=== PATIENT | female | born 1990 | race Caucasian/White ===

== ENCOUNTER 2023-09-14 14:24 | Inpatient (IN) | payer MEDICAID, OTHER ==
[~2023-09-14] VITALS: Ht 162.6 cm; Wt 56.7 kg
[2023-09-14] MEDS ORDERED: CARB-92 PO ×3 (14:48→14:50)
[2023-09-14] MEDS ORDERED: ESCI20TA87 PO (14:48)
[2023-09-14] MEDS ORDERED: HALOPERIDOL 5 MG TABLET PO PRN (15:15)
[2023-09-14] MEDS: LORazepam 2 MG TABLET PO PRN ×2 (15:47→21:32)
[2023-09-14 15:53] LABS: BASOPHILS % (AUTO) 0.9 % (0.0-2.0); EOSINOPHILS % (AUTO) 0.5 % (1.0-6.0); HEMATOCRIT 39.5 % (36-46); HEMOGLOBIN 13.6 g/dL (12.0-16.0); LYMPHOCYTES # (AUTO) 2.4 K/uL (1.0-4.8); LYMPHOCYTES % (AUTO) 28.8 % (22.0-44.0); MEAN CORPUSCULAR HEMOGLOBIN 31.6 pg (26.0-34.0); MEAN CORPUSCULAR HGB CONC 34.4 G/dL (31.0-37.0); MEAN CORPUSCULAR VOLUME 92 fL (80-100); MONOCYTES # (AUTO) 0.6 K/uL (0.1-1.0); MONOCYTES % (AUTO) 7.2 % (2.0-9.0); NEUTROPHILS # (AUTO) 5.1 K/uL (1.8-7.7); NEUTROPHILS % (AUTO) 62.6 % (40.0-70.0); PLATELET COUNT (AUTO) 259 K/uL (150-450); RED CELL DISTRIBUTION WIDTH 13.2 % (11.5-14.5); WHITE BLOOD COUNT (AUTO) 8.2 K/uL (4.5-11.0)
[2023-09-14 16:11] LABS: AMPHET/METH SCREEN,URINE NEGATIVE (NEGATIVE); BARBITURATE SCREEN, URINE NEGATIVE (NEGATIVE); BENZODIAZEPINES SCREEN,URINE NEGATIVE (NEGATIVE); CANNABINOID SCREEN,URINE NEGATIVE (NEGATIVE); COCAINE SCREEN,URINE NEGATIVE (NEGATIVE); METHADONE SCREEN, URINE NEGATIVE (NEGATIVE); OPIATE SCREEN,URINE NEGATIVE (NEGATIVE); PHENCYCLIDINE SCREEN,URINE NEGATIVE (NEGATIVE)
[2023-09-14 16:13] LABS: ALCOHOL, URINE DRUG SCREEN NEGATIVE (NEGATIVE)
[2023-09-14 16:13] LABS: ALCOHOL, BLOOD (SERUM) < 3 mg/dL (0-10)
[2023-09-14 16:14] LABS: ALANINE AMINOTRANSFERASE 28 U/L (12-78); ALBUMIN 3.6 g/dL (3.4-5.0); ALKALINE PHOSPHATASE 48 U/L (46-116); ANION GAP 5 mmol/L (8-16); ASPARTATE AMINOTRANSFERASE 16 U/L (15-37); BILIRUBIN,TOTAL 0.3 mg/dL (0.1-1.0); CARBON DIOXIDE 32 mmol/L (22-29); CHLORIDE 100 mmol/L (98-107); CREATININE 0.95 mg/dL (0.60-1.30); GLOMERULAR FILTR. RATE CALC > 60 mL/min (>60); GLUCOSE,RANDOM 81 mg/dL (70-110); SODIUM SERUM 137 mmol/L (136-145); TOTAL PROTEIN, SERUM 7.5 g/dL (6.4-8.2); UREA NITROGEN, BLOOD 8 mg/dL (7-18)
[2023-09-14 16:19] LABS: POTASSIUM 2.9 mmol/L (3.5-5.1)
[2023-09-14] MEDS ORDERED: POTASSIUM CHLORIDE 20 MEQ ER TABLET PO ONE ×2 (16:30→19:30)
[2023-09-14 18:16] LABS: COVID AG,FIA SOURCE NASAL SWAB
[2023-09-14] MEDS: ZOLPIDEM TARTRATE 10 MG TABLET PO PRN (18:21)
[2023-09-14 18:34] LABS: SARS-COV2 (COVID) ANTIGEN,FIA Negative (Negative)
[2023-09-14] MEDS ORDERED: NICOTINE 21 MG/24 HOUR PATCH TD ONE (19:30)
[2023-09-14 21:06] VITALS: BP 140/99; PULSE 63; RESP 18; TEMP 97.5; O2SAT 98
[2023-09-15] VITALS (8 sets, daily range): BP systolic 108–139; BP diastolic 65–92; PULSE 67–86; RESP 16–18; TEMP 97.5–98.7; O2SAT 97–98
[2023-09-15] MEDS ORDERED: INFLUENZA VIRUS VACCINE QVS 2023-24 (6MO+)/PF 60 MCG/0.5 ML SYRINGE IM. ONE (02:45)
[2023-09-15] MEDS ORDERED: LOPERAMIDE HCL 2 MG CAPSULE PO PRN ×2 (08:30)
[2023-09-15] MEDS ORDERED: TUBERCULIN, PURIFIED PROTEIN DERIVATIVE 5 TU/0.1 ML SYRINGE ID ONE (08:30)
[2023-09-15] MEDS ORDERED: CYANOCOBALAMIN 1,000 MCG/ML VIAL IM ONE (08:30)
[2023-09-15] MEDS ORDERED: HydrOXYzine PAMOATE 50 MG CAPSULE PO PRN (08:30)
[2023-09-15] MEDS ORDERED: MAG HYDROX/ALUMINUM HYD/SIMETH ES 30 ML SUSPENSION UDCUP PO PRN (08:30)
[2023-09-15] MEDS ORDERED: ACETAMINOPHEN 325 MG TABLET PO PRN (08:30)
[2023-09-15] MEDS ORDERED: DIAZEPAM 10 MG TABLET PO PRN (08:30)
[2023-09-15] MEDS ORDERED: DIAZEPAM 10 MG TABLET PO ONE (08:30)
[2023-09-15] MEDS ORDERED: PROMETHAZINE HCL 25 MG TABLET PO PRN (08:30)
[2023-09-15] MEDS ORDERED: MAGNESIUM HYDROXIDE SUSPENSION 30 ML UDCUP PO PRN (08:30)
[2023-09-15] MEDS ORDERED: GuaiFENesin/D-METHORPHAN [SUGAR-FREE] 200-20MG/10 ML SYRUP UDCUP PO PRN (08:30)
[2023-09-15 08:57] LABS: HCG,QUANTITATIVE < 1 mIU/mL (0-6); POTASSIUM 3.7 mmol/L (3.5-5.1)
[2023-09-15] MEDS: OMEGA-3/DHA/EPA/FISH OIL 1,000 MG CAPSULE PO SCH (09:30)
[2023-09-15] MEDS: GABAPENTIN 100 MG CAPSULE PO SCH ×4 (09:30→20:05)
[2023-09-15] MEDS: THIAMINE 100 MG TABLET PO SCH ×2 (09:30→16:23)
[2023-09-15] MEDS: FOLIC ACID 1 MG TABLET PO SCH (09:30)
[2023-09-15] MEDS: MULTIVITAMINS WITH MINERALS, THERAPEUTIC TABLET PO SCH (09:30)
[2023-09-15] MEDS: NALTREXONE HCL 50 MG TABLET PO SCH (09:30)
[2023-09-15] MEDS: CarBAMazepine 200 MG TABLET PO SCH ×2 (09:30→20:06)
[2023-09-15] MEDS: NICOTINE 21 MG/24 HOUR PATCH TD SCH (10:26)
[2023-09-15] MEDS: MIRTAZAPINE 15 MG TABLET PO SCH (20:06)
[2023-09-15] MEDS: ZOLPIDEM TARTRATE 10 MG TABLET PO PRN (20:06)
[2023-09-15] MEDS: MELATONIN 5 MG TABLET PO SCH (20:06)
[2023-09-16 01:28] VITALS: BP 110/70; PULSE 72; RESP 18; TEMP 98
[2023-09-16 05:36] VITALS: BP 110/83; PULSE 72; RESP 18; TEMP 97.4
[2023-09-16 08:02] LABS: HEMOGLOBIN A1C 4.5 % (3.8-5.6)
[2023-09-16 08:12] LABS: APPEARANCE,URINE CLEAR (CLEAR); BILIRUBIN,URINE NEGATIVE (NEGATIVE); COLOR,URINE LIGHT YELLOW (YELLOW); GLUCOSE, URINE (UA) NEGATIVE (NEGATIVE); KETONES,URINE NEGATIVE (NEGATIVE); LEUKOCYTE ESTERASE ,URINE NEGATIVE (NEGATIVE); NITRATE,URINE NEGATIVE (NEGATIVE); OCCULT BLOOD,URINE NEGATIVE (NEGATIVE); PH,URINE 6.5 (5.0-8.0); PH,URINE DRUG SCREEN 6.5 (5.0-8.0); PROTEIN,URINE TRACE mg/dL (NEGATIVE); SPECIFIC GRAVITIY, URINE 1.018 (1.003-1.030); UROBILINOGEN,URINE <=1.0 mg/dL (<=1.0)
[2023-09-16 08:25] LABS: CARBAMAZEPINE (TEGRETOL) 4.8 mcg/mL (4.0-12.0); CHOL/HDL RATIO 2.6 (3.9-5.7); FREE T4 (FREE THYROXINE) 0.74 ng/dL (0.76-1.46); THYROID STIMULATING HORMONE 0.43 uIU/mL (0.36-3.74)
[2023-09-16 08:31] VITALS: BP 123/81; PULSE 60; RESP 17; TEMP 97.5; O2SAT 99
[2023-09-16] MEDS: THIAMINE 100 MG TABLET PO SCH ×2 (08:31→17:09)
[2023-09-16] MEDS: DIAZEPAM 10 MG TABLET PO SCH ×4 (08:31→20:40)
[2023-09-16] MEDS: ARIPiprazole 2 MG TABLET PO SCH (08:31)
[2023-09-16 08:32] LABS: ALCOHOL, URINE DRUG SCREEN NEGATIVE (NEGATIVE); AMPHET/METH SCREEN,URINE NEGATIVE (NEGATIVE); BARBITURATE SCREEN, URINE NEGATIVE (NEGATIVE); BENZODIAZEPINES SCREEN,URINE NEGATIVE (NEGATIVE); CANNABINOID SCREEN,URINE NEGATIVE (NEGATIVE); COCAINE SCREEN,URINE NEGATIVE (NEGATIVE); METHADONE SCREEN, URINE NEGATIVE (NEGATIVE); OPIATE SCREEN,URINE NEGATIVE (NEGATIVE); PHENCYCLIDINE SCREEN,URINE NEGATIVE (NEGATIVE)
[2023-09-16] MEDS: FOLIC ACID 1 MG TABLET PO SCH (08:32)
[2023-09-16] MEDS: ESCITALOPRAM OXALATE 10 MG TABLET PO SCH (08:32)
[2023-09-16] MEDS: MULTIVITAMINS WITH MINERALS, THERAPEUTIC TABLET PO SCH (08:32)
[2023-09-16] MEDS: NALTREXONE HCL 50 MG TABLET PO SCH (08:32)
[2023-09-16] MEDS: CarBAMazepine 200 MG TABLET PO SCH ×2 (08:32→20:40)
[2023-09-16] MEDS: GABAPENTIN 100 MG CAPSULE PO SCH ×4 (08:32→20:40)
[2023-09-16] MEDS: OMEGA-3/DHA/EPA/FISH OIL 1,000 MG CAPSULE PO SCH (08:32)
[2023-09-16] MEDS: NICOTINE 21 MG/24 HOUR PATCH TD SCH (08:33)
[2023-09-16 09:45] VITALS: BP 115/78; PULSE 75; RESP 18; TEMP 97.8; O2SAT 97
[2023-09-16 14:06] VITALS: BP 110/74; PULSE 72; RESP 18; TEMP 97.5; O2SAT 98
[2023-09-16] MEDS: NICOTINE POLACRILEX 4 MG LOZENGE PO PRN ×3 (14:19→20:47)
[2023-09-16] MEDS: DIAZEPAM 10 MG TABLET PO PRN (14:21)
[2023-09-16] MEDS ORDERED: VARENICLINE TARTRATE 1 MG TABLET PO ONE (15:30)
[2023-09-16] MEDS: VARENICLINE TARTRATE 1 MG TABLET PO SCH (17:00)
[2023-09-16] MEDS: MELATONIN 5 MG TABLET PO SCH (20:40)
[2023-09-16] MEDS: MIRTAZAPINE 15 MG TABLET PO SCH (20:40)
[2023-09-16 20:52] VITALS: BP 139/89; PULSE 80; RESP 19; TEMP 98.1; O2SAT 99
[2023-09-17 03:30] VITALS: BP 125/84; PULSE 106; RESP 18; TEMP 97.6
[2023-09-17] MEDS: DIAZEPAM 10 MG TABLET PO PRN (03:45)
[2023-09-17] MEDS: NICOTINE POLACRILEX 4 MG LOZENGE PO PRN ×6 (03:47→21:12)
[2023-09-17] MEDS: OMEGA-3/DHA/EPA/FISH OIL 1,000 MG CAPSULE PO SCH (08:57)
[2023-09-17] MEDS: THIAMINE 100 MG TABLET PO SCH ×2 (08:57→16:06)
[2023-09-17] MEDS: ARIPiprazole 2 MG TABLET PO SCH (08:57)
[2023-09-17] MEDS: CarBAMazepine 200 MG TABLET PO SCH ×2 (08:58→20:07)
[2023-09-17] MEDS: DIAZEPAM 10 MG TABLET PO SCH ×4 (08:58→20:07)
[2023-09-17] MEDS: MULTIVITAMINS WITH MINERALS, THERAPEUTIC TABLET PO SCH (08:59)
[2023-09-17] MEDS: GABAPENTIN 100 MG CAPSULE PO SCH ×2 (08:59→12:52)
[2023-09-17] MEDS: NALTREXONE HCL 50 MG TABLET PO SCH (08:59)
[2023-09-17] MEDS: FOLIC ACID 1 MG TABLET PO SCH (08:59)
[2023-09-17] MEDS: ESCITALOPRAM OXALATE 10 MG TABLET PO SCH (09:00)
[2023-09-17] MEDS: VARENICLINE TARTRATE 1 MG TABLET PO SCH ×2 (09:00→16:06)
[2023-09-17 11:15] VITALS: BP 111/68; PULSE 75; RESP 16; TEMP 98.2
[2023-09-17] MEDS: GABAPENTIN 300 MG CAPSULE PO SCH ×2 (16:07→20:08)
[2023-09-17] MEDS: MELATONIN 5 MG TABLET PO SCH (20:18)
[2023-09-17] MEDS ORDERED: MIRTAZAPINE 15 MG TABLET PO SCH (21:00)
[2023-09-17] MEDS ORDERED: ESZOPICLONE 3 MG TABLET PO SCH (21:00)
[2023-09-17 21:45] VITALS: BP 140/81; PULSE 72; RESP 18; TEMP 97; O2SAT 99
[2023-09-18] MEDS: MELATONIN 5 MG TABLET PO SCH (00:08)
[2023-09-18] MEDS: NICOTINE POLACRILEX 4 MG LOZENGE PO PRN ×4 (00:14→09:14)
[2023-09-18 05:54] VITALS: BP 112/74; PULSE 74; RESP 17; TEMP 97.3; O2SAT 97
[2023-09-18] MEDS ORDERED: DIAZEPAM 5 MG TABLET PO PRN (07:00)
[2023-09-18] MEDS: MULTIVITAMINS WITH MINERALS, THERAPEUTIC TABLET PO SCH (08:02)
[2023-09-18] MEDS: NALTREXONE HCL 50 MG TABLET PO SCH (08:02)
[2023-09-18] MEDS: GABAPENTIN 300 MG CAPSULE PO SCH ×2 (08:02→12:18)
[2023-09-18] MEDS: THIAMINE 100 MG TABLET PO SCH (08:02)
[2023-09-18] MEDS: ARIPiprazole 2 MG TABLET PO SCH (08:02)
[2023-09-18] MEDS: OMEGA-3/DHA/EPA/FISH OIL 1,000 MG CAPSULE PO SCH (08:02)
[2023-09-18] MEDS: FOLIC ACID 1 MG TABLET PO SCH (08:02)
[2023-09-18] MEDS: CarBAMazepine 200 MG TABLET PO SCH (08:02)
[2023-09-18] MEDS: DIAZEPAM 5 MG TABLET PO SCH ×2 (08:03→12:19)
[2023-09-18] MEDS: VARENICLINE TARTRATE 1 MG TABLET PO SCH (08:05)
[2023-09-18 08:11] VITALS: BP 117/74; PULSE 77; RESP 17; TEMP 97.5; O2SAT 97
[2023-09-18] MEDS ORDERED: PARoxetine HCL 10 MG TABLET PO SCH (09:00)
[2023-09-18] MEDS ORDERED: OMEG-135 PO (11:51)
[2023-09-18] MEDS ORDERED: MIRT-89 PO (11:51)
[2023-09-18] MEDS ORDERED: PARO10TA71 PO (11:51)
[2023-09-18] MEDS ORDERED: ARIP2TAB27 PO (11:51)
[2023-09-18] MEDS ORDERED: VARE1TAB25 PO (11:51)
[2023-09-18] MEDS ORDERED: MELA5TAB40 PO (11:51)
[2023-09-18] MEDS ORDERED: CARB-92 PO ×2 (11:51)
[2023-09-19] MEDS ORDERED: DIAZEPAM 5 MG TABLET PO PRN (07:00)
== END 2023-09-18 13:00 | disposition home or self-care (01) | DRG 753 ==
LOC: EMS 14:25 → B3A 19:10
PROVIDERS: ADMIT Psychiatry & Neurology Psychiatry; ATTEND Psychiatry & Neurology Psychiatry
DX: F31.30 Bipolar disorder, current episode depressed, mild or moderate severity, unspecified (principal); R45.851 Suicidal ideations; G40.909 Epilepsy, unspecified, not intractable, without status epilepticus; F17.210 Nicotine dependence, cigarettes, uncomplicated; J44.9 Chronic obstructive pulmonary disease, unspecified; Z20.822 Contact with and (suspected) exposure to COVID-19; F10.939 Alcohol use, unspecified with withdrawal, unspecified; Z91.199 Patient's noncompliance with other medical treatment and regimen due to unspecified reason; Z88.8 Allergy status to other drugs, medicaments and biological substances; Z59.00 Homelessness unspecified; Z79.899 Other long term (current) drug therapy
CPT/HCPCS: 80053; 80061; 80156; 80307; 81003; 83036; 84132; 84439; 84443; 84702; 85025; 86592; 99285; G0480; J3420; Q9967

== ENCOUNTER 2023-09-16 21:43 | Emergency (ER) | payer MEDICAID, OTHER ==
[~2023-09-16] VITALS: Ht 162.6 cm; Wt 56.0 kg
[~2023-09-16 21:43] MED LIST: CARB-92 PO; ESCI20TA87 PO
[2023-09-16 23:30] VITALS: TEMP 98
[2023-09-17 00:31] LABS: BASOPHILS % (AUTO) 1.1 % (0.0-2.0); EOSINOPHILS % (AUTO) 1.4 % (1.0-6.0); HEMATOCRIT 35.8 % (36-46); HEMOGLOBIN 12.2 g/dL (12.0-16.0); LYMPHOCYTES # (AUTO) 3.3 K/uL (1.0-4.8); LYMPHOCYTES % (AUTO) 36.3 % (22.0-44.0); MEAN CORPUSCULAR HEMOGLOBIN 31.7 pg (26.0-34.0); MEAN CORPUSCULAR HGB CONC 34.1 G/dL (31.0-37.0); MEAN CORPUSCULAR VOLUME 93 fL (80-100); MONOCYTES # (AUTO) 0.7 K/uL (0.1-1.0); MONOCYTES % (AUTO) 7.9 % (2.0-9.0); NEUTROPHILS # (AUTO) 4.8 K/uL (1.8-7.7); NEUTROPHILS % (AUTO) 53.3 % (40.0-70.0); PLATELET COUNT (AUTO) 223 K/uL (150-450); RED BLOOD CELL COUNT(AUTO) 3.85 MIL/uL (4.00-5.20); RED CELL DISTRIBUTION WIDTH 13.6 % (11.5-14.5)
[2023-09-17 00:37] LABS: ANION GAP 3 mmol/L (8-16); CARBON DIOXIDE 31 mmol/L (22-29); CHLORIDE 106 mmol/L (98-107); CREATININE 0.93 mg/dL (0.60-1.30); GLOMERULAR FILTR. RATE CALC > 60 mL/min (>60); GLUCOSE,RANDOM 123 mg/dL (70-110); POTASSIUM 3.5 mmol/L (3.5-5.1); SODIUM SERUM 140 mmol/L (136-145); UREA NITROGEN, BLOOD 14 mg/dL (7-18)
[2023-09-17 00:42] LABS: ALCOHOL, BLOOD (SERUM) < 3 mg/dL (0-10)
[2023-09-17 00:43] LABS: ALANINE AMINOTRANSFERASE 18 U/L (12-78); ALBUMIN 2.7 g/dL (3.4-5.0); ALKALINE PHOSPHATASE 34 U/L (46-116); ASPARTATE AMINOTRANSFERASE 10 U/L (15-37); BILIRUBIN,TOTAL 0.1 mg/dL (0.1-1.0); TOTAL PROTEIN, SERUM 5.5 g/dL (6.4-8.2)
[2023-09-17 00:53] LABS: PH,URINE DRUG SCREEN 6.5 (5.0-8.0)
[2023-09-17 00:59] LABS: AMPHET/METH SCREEN,URINE NEGATIVE (NEGATIVE); BARBITURATE SCREEN, URINE NEGATIVE (NEGATIVE); BENZODIAZEPINES SCREEN,URINE POSITIVE (NEGATIVE); CANNABINOID SCREEN,URINE NEGATIVE (NEGATIVE); COCAINE SCREEN,URINE NEGATIVE (NEGATIVE); METHADONE SCREEN, URINE NEGATIVE (NEGATIVE); OPIATE SCREEN,URINE NEGATIVE (NEGATIVE); PHENCYCLIDINE SCREEN,URINE NEGATIVE (NEGATIVE)
[2023-09-17 01:00] LABS: ALCOHOL, URINE DRUG SCREEN NEGATIVE (NEGATIVE)
[2023-09-17 01:29] LABS: TROPONIN I-HIGH SENSITIVITY 6 ng/L (<51)
[2023-09-17] MEDS ORDERED: NICOTINE POLACRILEX 4 MG LOZENGE PO ONE (01:30)
[2023-09-17 01:35] VITALS: BP 120/75; PULSE 75; RESP 16
[2023-09-18] MEDS ORDERED: OMEG-135 PO (11:51)
[2023-09-18] MEDS ORDERED: VARE1TAB25 PO (11:51)
[2023-09-18] MEDS ORDERED: PARO10TA71 PO (11:51)
[2023-09-18] MEDS ORDERED: ARIP2TAB27 PO (11:51)
[2023-09-18] MEDS ORDERED: MIRT-89 PO (11:51)
[2023-09-18] MEDS ORDERED: MELA5TAB40 PO (11:51)
[2023-09-18] MEDS ORDERED: CARB-92 PO ×2 (11:51)
== END 2023-09-17 03:03 | disposition home or self-care (01) ==
LOC: EMS 21:55
DX: R07.89 Other chest pain (principal); F31.9 Bipolar disorder, unspecified; Z88.8 Allergy status to other drugs, medicaments and biological substances
CPT/HCPCS: 99285; 80053; 84484; 85025; 36415; 93005; 80307; 71045; G0480; Q9967

== ENCOUNTER 2024-05-18 21:36 | Inpatient (IN) | payer MEDICAID ==
[~2024-05-18] VITALS: Ht 160 cm; Wt 60.3 kg
[~2024-05-18 21:36] MED LIST changes: +ARIP2TAB27 PO; -ESCI20TA87 PO; +MELA5TAB40 PO; +MIRT-89 PO; +OMEG-135 PO; +PARO10TA71 PO; +VARE1TAB25 PO
[2024-05-18] MEDS ORDERED: ZOLPIDEM TARTRATE 10 MG TABLET PO PRN (22:00)
[2024-05-18] MEDS ORDERED: OLANZapine 5 MG RAPDIS TABLET PO PRN (22:00)
[2024-05-18 22:45] VITALS: BP 128/89; PULSE 74; RESP 16; TEMP 97.7; O2SAT 100
[2024-05-19 08:09] VITALS: BP 112/65; PULSE 63; RESP 17; TEMP 97.4; O2SAT 100
[2024-05-19 08:32] LABS: BASOPHILS % (AUTO) 0.8 % (0.0-2.0); EOSINOPHILS % (AUTO) 3.6 % (1.0-6.0); HEMATOCRIT 40.6 % (36-46); HEMOGLOBIN 13.5 g/dL (12.0-16.0); LYMPHOCYTES # (AUTO) 2.6 K/uL (1.0-4.8); LYMPHOCYTES % (AUTO) 38.7 % (22.0-44.0); MEAN CORPUSCULAR HEMOGLOBIN 31.2 pg (26.0-34.0); MEAN CORPUSCULAR HGB CONC 33.2 G/dL (31.0-37.0); MEAN CORPUSCULAR VOLUME 94 fL (80-100); MONOCYTES # (AUTO) 0.6 K/uL (0.1-1.0); MONOCYTES % (AUTO) 8.8 % (2.0-9.0); NEUTROPHILS # (AUTO) 3.3 K/uL (1.8-7.7); NEUTROPHILS % (AUTO) 48.1 % (40.0-70.0); PLATELET COUNT (AUTO) 269 K/uL (150-450); RED BLOOD CELL COUNT(AUTO) 4.32 MIL/uL (4.00-5.20); WHITE BLOOD COUNT (AUTO) 6.8 K/uL (4.5-11.0)
[2024-05-19 09:03] LABS: ALANINE AMINOTRANSFERASE 19 U/L (12-78); ALBUMIN 3.1 g/dL (3.4-5.0); ALKALINE PHOSPHATASE 43 U/L (46-116); ANION GAP 5 mmol/L (8-16); ASPARTATE AMINOTRANSFERASE 11 U/L (15-37); BILIRUBIN,TOTAL 0.3 mg/dL (0.1-1.0); CALCIUM, TOTAL 8.9 mg/dL (8.8-10.5); CARBON DIOXIDE 31 mmol/L (22-29); CHLORIDE 107 mmol/L (98-107); CHOL/HDL RATIO 1.8 (3.9-5.7); CHOLESTEROL 148 mg/dL (131-200); CREATININE 0.88 mg/dL (0.60-1.30); FREE T4 (FREE THYROXINE) 0.95 ng/dL (0.76-1.46); GLOMERULAR FILTR. RATE CALC > 60 mL/min (>60); GLUCOSE,RANDOM 85 mg/dL (70-110); HCG,QUANTITATIVE < 1 mIU/mL (0-6); HDL CHOLESTEROL 81 mg/dL (40-60); HEMOGLOBIN A1C 4.8 % (3.8-5.6); LDL CHOL (CALC.) 60 mg/dL (0-130); POTASSIUM 3.9 mmol/L (3.5-5.1); SODIUM SERUM 143 mmol/L (136-145); THYROID STIMULATING HORMONE 1.53 uIU/mL (0.36-3.74); TOTAL PROTEIN, SERUM 5.8 g/dL (6.4-8.2); TRIGLYCERIDES 37 mg/dL (15-150); UREA NITROGEN, BLOOD 11 mg/dL (7-18)
[2024-05-19] MEDS ORDERED: ACETAMINOPHEN 325 MG TABLET PO PRN (09:30)
[2024-05-19] MEDS ORDERED: GuaiFENesin/D-METHORPHAN [SUGAR-FREE] 200-20MG/10 ML SYRUP UDCUP PO PRN (09:30)
[2024-05-19] MEDS ORDERED: MAGNESIUM HYDROXIDE SUSPENSION 30 ML UDCUP PO PRN (09:30)
[2024-05-19] MEDS ORDERED: HydrOXYzine PAMOATE 50 MG CAPSULE PO PRN (09:30)
[2024-05-19] MEDS ORDERED: PROMETHAZINE HCL 25 MG TABLET PO PRN (09:30)
[2024-05-19] MEDS ORDERED: LOPERAMIDE HCL 2 MG CAPSULE PO PRN (09:30)
[2024-05-19] MEDS ORDERED: MAG HYDROX/ALUMINUM HYD/SIMETH ES 30 ML SUSPENSION UDCUP PO PRN (09:30)
[2024-05-19] MEDS: THIAMINE 100 MG TABLET PO SCH (16:04)
[2024-05-19] MEDS: LORazepam 2 MG TABLET PO PRN (19:27)
[2024-05-19 20:00] VITALS: BP 133/94; PULSE 80; RESP 16; TEMP 97.7; O2SAT 100
[2024-05-19] MEDS: NICOTINE 21 MG/24 HOUR PATCH TD SCH (20:10)
[2024-05-19] MEDS: MIRTAZAPINE 15 MG TABLET PO SCH (20:48)
[2024-05-19] MEDS: CarBAMazepine 200 MG TABLET PO SCH (20:48)
[2024-05-19] MEDS: ARIPiprazole 2 MG TABLET PO SCH (20:48)
[2024-05-19] MEDS: MELATONIN 5 MG TABLET PO SCH (20:48)
[2024-05-20 08:07] VITALS: RESP 16
[2024-05-20] MEDS: CarBAMazepine 200 MG TABLET PO SCH (08:15)
[2024-05-20] MEDS: MULTIVITAMINS WITH MINERALS, THERAPEUTIC TABLET PO SCH (08:15)
[2024-05-20] MEDS: PARoxetine HCL 10 MG TABLET PO SCH (08:15)
[2024-05-20] MEDS: NALTREXONE HCL 50 MG TABLET PO SCH (08:15)
[2024-05-20] MEDS: FOLIC ACID 1 MG TABLET PO SCH (08:15)
[2024-05-20 08:58] LABS: APPEARANCE,URINE CLEAR (CLEAR); BILIRUBIN,URINE NEGATIVE (NEGATIVE); COLOR,URINE COLORLESS (YELLOW); GLUCOSE, URINE (UA) NEGATIVE (NEGATIVE); KETONES,URINE NEGATIVE (NEGATIVE); LEUKOCYTE ESTERASE ,URINE NEGATIVE (NEGATIVE); NITRATE,URINE NEGATIVE (NEGATIVE); OCCULT BLOOD,URINE NEGATIVE (NEGATIVE); PROTEIN,URINE NEGATIVE (NEGATIVE); SPECIFIC GRAVITIY, URINE 1.005 (1.003-1.030); UROBILINOGEN,URINE <=1.0 mg/dL (<=1.0)
[2024-05-20 09:08] LABS: HEMOGLOBIN A1C 4.7 % (3.8-5.6)
[2024-05-20 09:13] LABS: ALCOHOL, URINE DRUG SCREEN NEGATIVE (NEGATIVE); AMPHET/METH SCREEN,URINE NEGATIVE (NEGATIVE); BARBITURATE SCREEN, URINE NEGATIVE (NEGATIVE); BENZODIAZEPINES SCREEN,URINE NEGATIVE (NEGATIVE); CANNABINOID SCREEN,URINE NEGATIVE (NEGATIVE); COCAINE SCREEN,URINE NEGATIVE (NEGATIVE); METHADONE SCREEN, URINE NEGATIVE (NEGATIVE); OPIATE SCREEN,URINE NEGATIVE (NEGATIVE); PHENCYCLIDINE SCREEN,URINE NEGATIVE (NEGATIVE)
[2024-05-20 09:18] LABS: CARBAMAZEPINE (TEGRETOL) 5.7 mcg/mL (4.0-12.0); CHOL/HDL RATIO 1.9 (3.9-5.7); FREE T4 (FREE THYROXINE) 1.02 ng/dL (0.76-1.46); THYROID STIMULATING HORMONE 1.82 uIU/mL (0.36-3.74)
[2024-05-20 09:23] LABS: HCG,QUAL URINE NEGATIVE (NEGATIVE)
[2024-05-20] MEDS ORDERED: GABAPENTIN 300 MG CAPSULE PO PRN (17:30)
[2024-05-20 20:19] VITALS: BP 112/65; PULSE 66; RESP 16; TEMP 97.4; O2SAT 100
[2024-05-20] MEDS: GABAPENTIN 300 MG CAPSULE PO SCH (21:00)
[2024-05-21 09:04] VITALS: BP 144/76; PULSE 77; RESP 16; TEMP 97.5; O2SAT 99
[2024-05-21 21:29] VITALS: BP 142/96; PULSE 90; RESP 16; TEMP 98; O2SAT 98
[2024-05-22 10:40] VITALS: BP 125/80; PULSE 83; RESP 18; TEMP 97.7; O2SAT 98
[2024-05-22 22:00] VITALS: RESP 18
[2024-05-23 08:35] VITALS: BP 114/79; PULSE 66; RESP 16; TEMP 97.6; O2SAT 99
[2024-05-23] MEDS ORDERED: ZOLPIDEM TARTRATE 10 MG TABLET PO PRN (10:45)
[2024-05-23] MEDS ORDERED: ACETAMINOPHEN 325 MG TABLET PO PRN (10:45)
[2024-05-23] MEDS ORDERED: MAG HYDROX/ALUMINUM HYD/SIMETH ES 30 ML SUSPENSION UDCUP PO PRN (10:45)
[2024-05-23] MEDS ORDERED: LORazepam 1 MG TABLET PO PRN (10:45)
[2024-05-23] MEDS ORDERED: MAGNESIUM HYDROXIDE SUSPENSION 30 ML UDCUP PO PRN (10:45)
[2024-05-23] MEDS ORDERED: LOPERAMIDE HCL 2 MG CAPSULE PO PRN (10:45)
[2024-05-23] MEDS ORDERED: HydrOXYzine PAMOATE 50 MG CAPSULE PO PRN (10:45)
[2024-05-23] MEDS ORDERED: PROMETHAZINE HCL 25 MG TABLET PO PRN (10:45)
[2024-05-23] MEDS ORDERED: GuaiFENesin/D-METHORPHAN [SUGAR-FREE] 200-20MG/10 ML SYRUP UDCUP PO PRN (10:45)
[2024-05-23] MEDS ORDERED: ARIPiprazole 5 MG TABLET PO PRN (10:45)
[2024-05-23] MEDS ORDERED: GABA-1181 PO (10:52)
[2024-05-23] MEDS ORDERED: ARIP5TAB37 PO (10:52)
[2024-05-23] MEDS: CarBAMazepine 200 MG TABLET PO ONE (11:01)
[2024-05-23] MEDS: THIAMINE 100 MG TABLET PO SCH (17:08)
[2024-05-23 20:02] VITALS: BP 127/80; PULSE 84; RESP 16; TEMP 97; O2SAT 100
[2024-05-23] MEDS: ARIPiprazole 5 MG TABLET PO SCH (20:07)
[2024-05-23] MEDS: CarBAMazepine 200 MG TABLET PO SCH (20:53)
[2024-05-24] MEDS: CarBAMazepine 200 MG TABLET PO SCH (08:52)
[2024-05-24 09:08] VITALS: BP 121/76; PULSE 74; RESP 16; TEMP 97.5; O2SAT 99
[2024-05-24] MEDS: FOLIC ACID 1 MG TABLET PO SCH (09:28)
== END 2024-05-24 14:12 | disposition home or self-care (01) | DRG 750 ==
LOC: B3A 22:03
PROVIDERS: ADMIT Psychiatry & Neurology Psychiatry; ATTEND Psychiatry & Neurology Psychiatry
PROC: GZHZZZZ Group Psychotherapy (ICD-10-PCS; principal; 2024-05-19)
PROC: GZ51ZZZ Individual Psychotherapy, Behavioral (ICD-10-PCS; 2024-05-19)
DX: F25.0 Schizoaffective disorder, bipolar type (principal); R56.9 Unspecified convulsions; Z91.148 Patient's other noncompliance with medication regimen for other reason; Z59.01 Sheltered homelessness; Z88.8 Allergy status to other drugs, medicaments and biological substances
CPT/HCPCS: 80053; 80061; 80156; 80307; 81003; 83036; 84439; 84443; 84702; 84703; 85025; 86592

== ENCOUNTER → 2024-05-20 | Emergency (ER) | payer MEDICAID, OTHER ==
[~2024-05-20] VITALS: Ht 162.6 cm; Wt 61.4 kg
[~2024-05-20] MED LIST changes: +ARIP5TAB37 PO; +GABA-1181 PO
[2024-05-20 21:26] VITALS: BP 136/91; PULSE 81; RESP 18; TEMP 98.5
[2024-05-20 22:34] LABS: BASOPHILS % (AUTO) 0.6 % (0.0-2.0); EOSINOPHILS % (AUTO) 1.3 % (1.0-6.0); HEMATOCRIT 41.4 % (36-46); HEMOGLOBIN 13.8 g/dL (12.0-16.0); LYMPHOCYTES # (AUTO) 2.3 K/uL (1.0-4.8); LYMPHOCYTES % (AUTO) 24.6 % (22.0-44.0); MEAN CORPUSCULAR HEMOGLOBIN 31.4 pg (26.0-34.0); MEAN CORPUSCULAR HGB CONC 33.4 G/dL (31.0-37.0); MEAN CORPUSCULAR VOLUME 94 fL (80-100); MONOCYTES # (AUTO) 0.7 K/uL (0.1-1.0); MONOCYTES % (AUTO) 7.7 % (2.0-9.0); NEUTROPHILS # (AUTO) 6.3 K/uL (1.8-7.7); NEUTROPHILS % (AUTO) 65.8 % (40.0-70.0); PLATELET COUNT (AUTO) 284 K/uL (150-450); RED BLOOD CELL COUNT(AUTO) 4.41 MIL/uL (4.00-5.20); RED CELL DISTRIBUTION WIDTH 13.7 % (11.5-14.5); WHITE BLOOD COUNT (AUTO) 9.6 K/uL (4.5-11.0)
[2024-05-20 22:42] LABS: ANION GAP 3 mmol/L (8-16); CALCIUM, TOTAL 9.2 mg/dL (8.8-10.5); CARBON DIOXIDE 34 mmol/L (22-29); CHLORIDE 102 mmol/L (98-107); CREATININE 0.92 mg/dL (0.60-1.30); GLOMERULAR FILTR. RATE CALC > 60 mL/min (>60); GLUCOSE,RANDOM 93 mg/dL (70-110); SODIUM SERUM 139 mmol/L (136-145); UREA NITROGEN, BLOOD 15 mg/dL (7-18)
== END | disposition still patient (30) ==
LOC: EMS 19:11
DX: K59.00 Constipation, unspecified (principal); F32.A Depression, unspecified; Z88.8 Allergy status to other drugs, medicaments and biological substances
CPT/HCPCS: 72100; 74176; 80048; 85025; 99284

== ENCOUNTER 2024-06-06 14:14 | Inpatient (IN) | payer MEDICAID, OTHER ==
[~2024-06-06] VITALS: Ht 160 cm; Wt 60.0 kg
[~2024-06-06 14:14] MED LIST changes: -ARIP2TAB27 PO; -MELA5TAB40 PO; -MIRT-89 PO; -OMEG-135 PO; -PARO10TA71 PO; -VARE1TAB25 PO
[2024-06-06 15:44] LABS: ANION GAP 6 mmol/L (8-16); BASOPHILS % (AUTO) 0.4 % (0.0-2.0); CARBON DIOXIDE 28 mmol/L (22-29); CHLORIDE 103 mmol/L (98-107); CREATININE 0.87 mg/dL (0.60-1.30); EOSINOPHILS % (AUTO) 0.9 % (1.0-6.0); GLOMERULAR FILTR. RATE CALC > 60 mL/min (>60); GLUCOSE,RANDOM 101 mg/dL (70-110); HEMATOCRIT 44.9 % (36-46); LYMPHOCYTES # (AUTO) 2.3 K/uL (1.0-4.8); LYMPHOCYTES % (AUTO) 25.1 % (22.0-44.0); MEAN CORPUSCULAR HEMOGLOBIN 31.3 pg (26.0-34.0); MEAN CORPUSCULAR HGB CONC 33.5 G/dL (31.0-37.0); MEAN CORPUSCULAR VOLUME 93 fL (80-100); MONOCYTES # (AUTO) 0.6 K/uL (0.1-1.0); NEUTROPHILS # (AUTO) 6.3 K/uL (1.8-7.7); NEUTROPHILS % (AUTO) 67.6 % (40.0-70.0); PLATELET COUNT (AUTO) 200 K/uL (150-450); POTASSIUM 3.7 mmol/L (3.5-5.1); RED BLOOD CELL COUNT(AUTO) 4.81 MIL/uL (4.00-5.20); RED CELL DISTRIBUTION WIDTH 13.2 % (11.5-14.5); SODIUM SERUM 137 mmol/L (136-145); UREA NITROGEN, BLOOD 9 mg/dL (7-18); WHITE BLOOD COUNT (AUTO) 9.3 K/uL (4.5-11.0)
[2024-06-06 15:52] LABS: ALCOHOL, BLOOD (SERUM) < 3 mg/dL (0-10)
[2024-06-06] MEDS: LORazepam 2 MG TABLET PO ONE (16:31)
[2024-06-06] MEDS: CarBAMazepine 200 MG TABLET PO ONE (16:31)
[2024-06-06] MEDS: ARIPiprazole 5 MG TABLET PO ONE (16:31)
[2024-06-06 17:48] LABS: COVID AG,FIA SOURCE NASAL SWAB
[2024-06-06 18:14] LABS: SARS-COV2 (COVID) ANTIGEN,FIA Negative (Negative)
[2024-06-06] MEDS ORDERED: GuaiFENesin/D-METHORPHAN [SUGAR-FREE] 200-20MG/10 ML SYRUP UDCUP PO PRN (20:45)
[2024-06-06] MEDS ORDERED: LOPERAMIDE HCL 2 MG CAPSULE PO PRN (20:45)
[2024-06-06] MEDS ORDERED: PROMETHAZINE HCL 25 MG TABLET PO PRN (20:45)
[2024-06-06] MEDS ORDERED: MAG HYDROX/ALUMINUM HYD/SIMETH ES 30 ML SUSPENSION UDCUP PO PRN (20:45)
[2024-06-06] MEDS ORDERED: MAGNESIUM HYDROXIDE SUSPENSION 30 ML UDCUP PO PRN (20:45)
[2024-06-06] MEDS: CarBAMazepine 200 MG TABLET PO SCH (21:00)
[2024-06-06] MEDS: ARIPiprazole 15 MG TABLET PO SCH (21:15)
[2024-06-06] MEDS: MELATONIN 5 MG TABLET PO SCH (21:15)
[2024-06-06] MEDS: GABAPENTIN 400 MG CAPSULE PO SCH (21:15)
[2024-06-06] MEDS: THIAMINE 100 MG TABLET PO SCH (21:15)
[2024-06-06] MEDS: NICOTINE 14 MG/24 HOUR PATCH TD ONE (22:08)
[2024-06-06] MEDS: [UNRECOGNIZED DRUG - OTHER] IM ONE (22:09)
[2024-06-06] MEDS: ARIPIPRAZOLE IM ONE (22:09)
[2024-06-07] MEDS ORDERED: PNEUMOCOCCAL VACCINE POLYVALENT 0.5 ML SYRINGE [PPSV23] IM. ONE (05:30)
[2024-06-07 06:41] VITALS: BP 112/85; PULSE 69; RESP 18; TEMP 97.5
[2024-06-07 06:48] VITALS: BP 112/72; PULSE 72; RESP 18; TEMP 97.1; O2SAT 97
[2024-06-07 08:47] VITALS: BP 123/83; PULSE 76; RESP 17; TEMP 98.3; O2SAT 98
[2024-06-07] MEDS: NALTREXONE HCL 50 MG TABLET PO SCH (09:57)
[2024-06-07] MEDS: CarBAMazepine 200 MG TABLET PO SCH (09:57)
[2024-06-07] MEDS: MULTIVITAMINS WITH MINERALS, THERAPEUTIC TABLET PO SCH (09:57)
[2024-06-07] MEDS: FOLIC ACID 1 MG TABLET PO SCH (09:57)
[2024-06-07 20:00] VITALS: BP 114/84; PULSE 80; RESP 16; TEMP 97.6; O2SAT 100
[2024-06-07] MEDS: ARIPIPRAZOLE IM ONE (21:09)
[2024-06-07] MEDS: [UNRECOGNIZED DRUG - OTHER] IM ONE (21:09)
[2024-06-08 08:19] VITALS: BP 121/82; PULSE 66; RESP 14; TEMP 98; O2SAT 99
[2024-06-08] MEDS: HydrOXYzine PAMOATE 50 MG CAPSULE PO PRN (13:24)
[2024-06-08] MEDS: GABAPENTIN 300 MG CAPSULE PO SCH (16:58)
[2024-06-08] MEDS: CHLORHEXIDINE GLUCONATE 2% TOWELETTE [2'S/6'S] TP SCH (20:33)
[2024-06-08 20:43] VITALS: BP 123/88; PULSE 90; RESP 16; TEMP 96.4; O2SAT 99
[2024-06-08] MEDS: ETHYL ALCOHOL 62% ANTISEPTIC NASAL SANITIZER 0.6 ML AMPUL NASAL SCH (21:37)
[2024-06-09 02:17] VITALS: BP 120/91; PULSE 72; RESP 18; TEMP 96.4
[2024-06-09 08:52] VITALS: BP 118/89; PULSE 74; RESP 17; TEMP 97.3; O2SAT 100
[2024-06-09] MEDS: NICOTINE 21 MG/24 HOUR PATCH TD SCH (09:47)
[2024-06-09 10:18] VITALS: BP 120/88; PULSE 76; RESP 18; TEMP 97.8; O2SAT 98
[2024-06-09] MEDS: ACETAMINOPHEN 325 MG TABLET PO PRN (10:18)
[2024-06-09 11:18] VITALS: RESP 18; O2SAT 99
[2024-06-09] MEDS: GABAPENTIN 400 MG CAPSULE PO SCH (17:25)
[2024-06-09 20:30] VITALS: BP 121/83; PULSE 79; RESP 18; TEMP 98.8; O2SAT 100
[2024-06-10 08:46] VITALS: BP 116/77; PULSE 80; RESP 16; TEMP 97.5; O2SAT 99
[2024-06-10] MEDS: RisperiDONE 2 MG TABLET PO PRN (13:22)
[2024-06-10 20:47] VITALS: BP 115/76; PULSE 86; RESP 16; TEMP 97.3; O2SAT 100
[2024-06-11 08:17] VITALS: BP 123/77; PULSE 108; RESP 20; TEMP 97.8; O2SAT 98
[2024-06-12 09:23] VITALS: BP 118/70; PULSE 90; RESP 17; TEMP 98; O2SAT 99
[2024-06-12] MEDS: HydrOXYzine PAMOATE 50 MG CAPSULE PO PRN (14:59)
[2024-06-12 21:46] VITALS: BP 115/77; PULSE 76; RESP 18; TEMP 97.2; O2SAT 100
[2024-06-13 08:48] VITALS: BP 113/76; PULSE 81; RESP 16; TEMP 98; O2SAT 100
[2024-06-13] MEDS ORDERED: ARIP15TA27 PO (15:37)
[2024-06-13] MEDS ORDERED: MELA5TAB40 PO (15:37)
[2024-06-13] MEDS ORDERED: GABA-1201 PO (15:37)
[2024-06-13] MEDS ORDERED: NALT50TA33 PO (15:37)
[2024-06-13] MEDS ORDERED: [UNRECOGNIZED DRUG - CODE] IM (15:37)
[2024-08-05] MEDS ORDERED: [UNRECOGNIZED DRUG - OTHER] IM SCH (09:00)
[2024-08-05] MEDS ORDERED: ARIPIPRAZOLE IM SCH (09:00)
== END 2024-06-13 17:48 | disposition home or self-care (01) | DRG 750 ==
LOC: EMS 14:14 → B2S 06-07 00:58
PROVIDERS: ADMIT Psychiatry & Neurology Psychiatry; ATTEND Psychiatry & Neurology Psychiatry
PROC: GZHZZZZ Group Psychotherapy (ICD-10-PCS; principal; 2024-06-07)
PROC: GZ58ZZZ Individual Psychotherapy, Cognitive-Behavioral (ICD-10-PCS; 2024-06-07)
PROC: GZ56ZZZ Individual Psychotherapy, Supportive (ICD-10-PCS; 2024-06-07)
DX: F25.9 Schizoaffective disorder, unspecified (principal); R45.851 Suicidal ideations; Z91.148 Patient's other noncompliance with medication regimen for other reason; R56.9 Unspecified convulsions; J44.9 Chronic obstructive pulmonary disease, unspecified; F31.9 Bipolar disorder, unspecified; F41.9 Anxiety disorder, unspecified; Z20.822 Contact with and (suspected) exposure to COVID-19; G89.29 Other chronic pain; T43.506A Underdosing of unspecified antipsychotics and neuroleptics, initial encounter; F15.20 Other stimulant dependence, uncomplicated; F12.20 Cannabis dependence, uncomplicated; F10.20 Alcohol dependence, uncomplicated; F17.200 Nicotine dependence, unspecified, uncomplicated; Z59.9 Problem related to housing and economic circumstances, unspecified; Z63.9 Problem related to primary support group, unspecified; Z65.3 Problems related to other legal circumstances; Z55.9 Problems related to education and literacy, unspecified; Z79.899 Other long term (current) drug therapy; Z88.8 Allergy status to other drugs, medicaments and biological substances; Z81.1 Family history of alcohol abuse and dependence; Z59.00 Homelessness unspecified; Y92.89 Other specified places as the place of occurrence of the external cause; Z91.51 Personal history of suicidal behavior
CPT/HCPCS: 80048; 80156; 84703; 85025; 86592; 87081; 99285; G0480